=== PATIENT | male | born 1955 | race Caucasian/White ===

== ENCOUNTER → 2017-02-19 | Outpatient (CLI) | payer BC | LOC: COL.RAD 09:35 | DX: M48.02 Spinal stenosis, cervical region (principal); M46.82 Other specified inflammatory spondylopathies, cervical region; M50.20 Other cervical disc displacement, unspecified cervical region; E10.65 Type 1 diabetes mellitus with hyperglycemia; Z98.1 Arthrodesis status | CPT/HCPCS: A9585 ==

== ENCOUNTER → 2018-03-02 | Outpatient (CLI) | payer BC | LOC: COL.RAD 14:22 | DX: Z01.818 Encounter for other preprocedural examination (principal); E10.65 Type 1 diabetes mellitus with hyperglycemia; M50.21 Other cervical disc displacement, high cervical region; M48.02 Spinal stenosis, cervical region; G95.29 Other cord compression; Z98.1 Arthrodesis status; Z98.890 Other specified postprocedural states | CPT/HCPCS: A9585 ==

== ENCOUNTER → 2022-09-04 | Outpatient (CLI) | payer MEDICARE, OTHER ==
[2022-09-04 17:41] LABS: HEMATOCRIT 41.2 % (42.0-52.0); HEMOGLOBIN 13.8 g/dl (13.5-18.0); MEAN CELL VOLUME 91 fl (80.0-100.0); MEAN CORPUSCULAR HEMOGLOBIN 31 pg (27-31); MEAN CORPUSCULAR HGB CONC 34 g/dl (33.0-37.0); MEAN PLATELET VOLUME 9.8 fl (7.4-10.4); PLATELET COUNT 294 K/mm3 (130-400); RED BLOOD COUNT 4.51 M/mm3 (4.20-5.60); REDCELL DISTRIBUTION WIDTH-CV 12.1 % (11.5-14.5)
[2022-09-04 17:42] LABS: ALBUMIN 3.8 gm/dL (3.4-4.8); BILIRUBIN,TOTAL 0.4 mg/dL (0.2-1.2); CREATININE, serum 0.8 mg/dL (0.72-1.25); POTASSIUM 4.3 mmol/L (3.5-4.5); TOTAL PROTEIN 6.5 gm/dL (6.2-8.1)
== END ==
LOC: COL.LAB 16:53
PROVIDERS: Family Medicine
DX: K92.1 Melena (principal)